=== PATIENT | female | born 1970 | race Hispanic/Latino ===

== ENCOUNTER 2019-04-21 19:09 | Emergency (ER) | payer OTHER ==
[2019-04-21 19:27] LABS: APPEARANCE,URINE Turbid (CLEAR); BILIRUBIN,URINE Negative (NEGATIVE); COLOR,URINE Yellow (YELLOW); GLUCOSE, URINE (UA) Negative (NEGATIVE); KETONES,URINE Negative (NEGATIVE); LEUKOCYTE ESTERASE ,URINE Moderate (NEGATIVE); NITRATE,URINE Negative (NEGATIVE); OCCULT BLOOD,URINE Large (NEGATIVE); PH,URINE >=9.0 (5.0-8.0); PROTEIN,URINE POS 2+ mg/dL (NEGATIVE)
[2019-04-21 19:34] LABS: RBC,URINE 26-50 /HPF (0-1)
[2019-04-21 19:35] LABS: BACTERIA,URINE Many /HPF (None Seen); MUCUS,URINE Few LPF (None Seen)
== END 2019-04-21 20:49 | disposition home or self-care (01) ==
LOC: EDH 19:09
DX: N30.01 Acute cystitis with hematuria (principal); Z90.49 Acquired absence of other specified parts of digestive tract
CPT/HCPCS: 81001

== ENCOUNTER 2021-07-21 13:46 | Emergency (ER) | payer OTHER ==
[~2021-07-21] VITALS: Ht 170.2 cm; Wt 97.5 kg
[2021-07-21] MEDS ORDERED: KETOROLAC 60 MG VIAL (30MG/ML) IM ONE (15:00)
[2021-07-21] MEDS ORDERED: CYCL-309 PO (15:56)
[2021-07-21] MEDS ORDERED: MELO7.5T12 PO (15:56)
[2021-07-21 16:02] VITALS: BP 132/80
== END 2021-07-21 16:02 | disposition home or self-care (01) ==
LOC: EDH 13:46
DX: S86.912A Strain of unspecified muscle(s) and tendon(s) at lower leg level, left leg, initial encounter (principal); Z90.49 Acquired absence of other specified parts of digestive tract; Z79.1 Long term (current) use of non-steroidal anti-inflammatories (NSAID); W18.39XA Other fall on same level, initial encounter; Y93.89 Activity, other specified; Y92.89 Other specified places as the place of occurrence of the external cause; Y99.8 Other external cause status
CPT/HCPCS: 73562; 96372; 99283; J1885

== ENCOUNTER 2021-11-20 05:30 | Observation (INO) | payer OTHER ==
[2021-11-19 15:58] LABS: BASOPHILS % (AUTO) 0.9 % (0.0-5.0); EOSINOPHILS % (AUTO) 3.2 % (0.0-8.0); HEMATOCRIT 38.3 % (36-48); LYMPHOCYTES % (AUTO) 22.4 % (21.0-51.0); MEAN CORPUSCULAR HEMOGLOBIN 25.9 pg (27.0-33.0); MEAN CORPUSCULAR HGB CONC 31.9 g/dL (32.0-36.0); MEAN CORPUSCULAR VOLUME 81.3 fL (79-99); MONOCYTES % (AUTO) 5.6 % (3.0-13.0); NEUTROPHILS % (AUTO) 67.5 % (40.0-77.0); PLATELET COUNT (AUTO) 443 K/uL (130-400); RED BLOOD CELL COUNT(AUTO) 4.71 MIL/uL (4.00-5.50); RED CELL DISTRIBUTION WIDTH 14.5 % (11.0-15.5); WHITE BLOOD COUNT (AUTO) 11.9 K/uL (4.8-10.8)
[2021-11-19 17:22] VITALS: BP 143/73
[2021-11-20] VITALS (23 sets, daily range): BP systolic 118–148; BP diastolic 66–89
[~2021-11-20] VITALS: Ht 167.6 cm; Wt 99.3 kg
[2021-11-20] MEDS ORDERED: CEFAZOLIN SODIUM 1 GM VIAL ONE (07:57)
[2021-11-20] MEDS: LACTATED RINGERS 1000ML 1,000 ML IV SCH ×2 (08:03→12:11)
[2021-11-20] MEDS ORDERED: VITAMIN D PO (09:20)
[2021-11-20] MEDS ORDERED: GARL1000 PO (09:20)
[2021-11-20] MEDS ORDERED: OMEG-148 PO (09:20)
[2021-11-20] MEDS ORDERED: MAGN500C4 PO (09:20)
[2021-11-20] MEDS ORDERED: LIDOCAINE PF 100MG/5ML (2%) SYRINGE 5ML ONE (10:51)
[2021-11-20] MEDS ORDERED: ONDANSETRON 4MG INJ ONE ×2 (10:51→14:54)
[2021-11-20] MEDS ORDERED: FENTANYL CITRATE PF 50 MCG/1 ML 5ML AMP IV ONE (10:52)
[2021-11-20] MEDS ORDERED: PROPOFOL 10 MG/ML 20ML VIAL IV ONE (10:52)
[2021-11-20] MEDS ORDERED: MIDAZOLAM HCL 1 MG/ML 2ML VIAL ONE (10:52)
[2021-11-20] MEDS ORDERED: ROCURONIUM 10MG/1ML SYR 10 MG/ML ML ONE ×2 (10:52→12:13)
[2021-11-20] MEDS ORDERED: MAGNESIUM SULFATE 1 GM/2 ML VIAL ONE (10:56)
[2021-11-20] MEDS ORDERED: KETAMINE 50MG/ML SYRINGE 50 MG/ML DISP.SYRIN IV ONE (10:56)
[2021-11-20] MEDS ORDERED: ACETAMINOPHEN 500 MG TABLET ONE (11:04)
[2021-11-20] MEDS ORDERED: CEFAZOLIN SODIUM 2 GM VIAL IV ONE (11:48)
[2021-11-20] MEDS ORDERED: EPHEDRINE SULFATE 50 MG/ML AMPULE ONE (12:12)
[2021-11-20] MEDS ORDERED: FENTANYL CITRATE PF 50 MCG/1 ML 2ML VIAL ONE ×2 (13:16→13:49)
[2021-11-20] MEDS ORDERED: GLYCOPYRROLATE 1 MG/5 ML SYRINGE ONE (13:43)
[2021-11-20] MEDS ORDERED: NEOSTIGMINE 5MG/5ML SYR IV ONE (13:43)
[2021-11-20] MEDS ORDERED: KETOROLAC 30MG VIAL (30MG/ML) ONE (14:49)
[2021-11-20] MEDS ORDERED: MEPERIDINE-PF 25 MG/ML SYG ONE (14:54)
[2021-11-20] MEDS ORDERED: ONDANSETRON 4MG INJ IVP PRN (16:00)
[2021-11-20] MEDS ORDERED: ACETAMINOPHEN WITH CODEINE 1 TAB TAB PO PRN (16:00)
[2021-11-20] MEDS ORDERED: PROMETHAZINE HCL 25 MG/ML 1ML AMPULE IM PRN (16:00)
[2021-11-20] MEDS ORDERED: BISACODYL 10 MG SUPP.RECT RC PRN (16:00)
[2021-11-20] MEDS ORDERED: IBUPROFEN 600 MG TABLET PO PRN (16:00)
[2021-11-20] MEDS: DEXTROSE 5 %-0.45 % NACL 1,000 ML IV PRN (17:15)
[2021-11-20] MEDS: PROMETHAZINE HCL 25 MG/ML 1ML AMPULE IM PRN ×2 (18:22→21:27)
[2021-11-20] MEDS: MEPERIDINE-PF 75 MG/ML SYG IM PRN ×2 (18:22→21:28)
[2021-11-20] MEDS: DOCUSATE SODIUM 100 MG CAP PO PRN (21:27)
[2021-11-20] MEDS: SIMETHICONE 80 MG TAB.CHEW PO PRN (21:27)
[2021-11-21] MEDS: DEXTROSE 5 %-0.45 % NACL 1,000 ML IV PRN (02:35)
[2021-11-21 04:11] VITALS: BP 129/79
[2021-11-21 05:21] LABS: HEMATOCRIT 33.4 % (36-48); MEAN CORPUSCULAR HEMOGLOBIN 25.8 pg (27.0-33.0); MEAN CORPUSCULAR VOLUME 80.7 fL (79-99); RED BLOOD CELL COUNT(AUTO) 4.14 MIL/uL (4.00-5.50); RED CELL DISTRIBUTION WIDTH 14.2 % (11.0-15.5); WHITE BLOOD COUNT (AUTO) 18.8 K/uL (4.8-10.8)
[2021-11-21] MEDS ORDERED: HYDROCODONE/ACETAMINOPHEN 5/325 MG TAB PO PRN (05:30)
[2021-11-21] MEDS ORDERED: ACETAMINOPHEN WITH CODEINE 1 TAB TAB PO PRN (05:30)
[2021-11-21] MEDS: IBUPROFEN 800 MG TAB PO PRN ×2 (06:47→19:31)
[2021-11-21 07:35] VITALS: BP 114/62
[2021-11-21] MEDS ORDERED: CEFAZOLIN SODIUM 1 GM VIAL IVP ONE (08:00)
[2021-11-21] MEDS: DOCUSATE SODIUM 100 MG CAP PO PRN ×2 (08:51→21:09)
[2021-11-21] MEDS: SIMETHICONE 80 MG TAB.CHEW PO PRN ×2 (08:51→21:09)
[2021-11-21] MEDS: NITROFURANTOIN MONOHYD/M-CRYST 100 MG CAPSULE PO SCH ×2 (08:51→21:09)
[2021-11-21 11:45] VITALS: BP 122/72
[2021-11-21 15:40] VITALS: BP 124/77
[2021-11-21 19:35] VITALS: BP 141/70
[2021-11-22 00:01] VITALS: BP 112/77
[2021-11-22] MEDS: IBUPROFEN 800 MG TAB PO PRN ×2 (02:24→09:12)
[2021-11-22 03:52] VITALS: BP 116/59
[2021-11-22 07:40] VITALS: BP 124/79
[2021-11-22] MEDS: NITROFURANTOIN MONOHYD/M-CRYST 100 MG CAPSULE PO SCH (09:12)
[2021-11-22] MEDS: DOCUSATE SODIUM 100 MG CAP PO PRN (09:12)
[2021-11-22] MEDS: SIMETHICONE 80 MG TAB.CHEW PO PRN (09:12)
[2021-11-22] MEDS ORDERED: FERR325T22 PO (09:27)
[2021-11-22] MEDS ORDERED: ACET-2079 PO (09:27)
[2021-11-22] MEDS ORDERED: NITR100C4 PO (09:27)
[2021-11-22 11:30] VITALS: BP 120/74
== END 2021-11-22 12:40 | disposition home or self-care (01) ==
LOC: DAH 05:30 → DAHIP 05:31 → WSH 15:15 → DAH 15:50
PROVIDERS: ADMIT Obstetrics & Gynecology; ATTEND Obstetrics & Gynecology
DX: N92.0 Excessive and frequent menstruation with regular cycle (principal); Z20.822 Contact with and (suspected) exposure to COVID-19; R10.2 Pelvic and perineal pain; N81.4 Uterovaginal prolapse, unspecified; N39.3 Stress incontinence (female) (male); N83.202 Unspecified ovarian cyst, left side; D25.9 Leiomyoma of uterus, unspecified; Z79.899 Other long term (current) drug therapy; Z98.890 Other specified postprocedural states
CPT/HCPCS: 36415 ×2; 57260; 57288; 58262; 85025; 85027; 86850; 86900; 86901; 87635; 96372; A4215; A4221; A4222; A4223; A4351; A4510; A4600; A4606; A4663; C1771; C9803; G0378 ×45; J0690 ×2; J1885; J2001; J2175 ×3; J2250; J2405 ×2; J2550 ×2; J2704; J2710; J3010 ×3; J3475; J3490 ×3; J7030; J7120 ×2

== ENCOUNTER 2023-04-12 21:55 | Emergency (ER) | payer BC, OTHER ==
[~2023-04-12] VITALS: Ht 167.6 cm; Wt 99.8 kg
[~2023-04-12 21:55] MED LIST: ACET-2079 PO; FERR325T22 PO; GARL1000 PO; MAGN500C4 PO; NITR100C4 PO; OMEG-148 PO; VITAMIN D PO
[2023-04-12 22:57] LABS: BASOPHILS # (AUTO) 0.09 K/uL (0.00-0.20); BASOPHILS % (AUTO) 0.7 % (0.0-5.0); IMMATURE GRANULOCYTE ABSOLUTE 0.06 K/uL (0-1); LYMPHOCYTES % (AUTO) 29.2 % (21.0-51.0); MEAN CORPUSCULAR HEMOGLOBIN 25.8 pg (27.0-33.0); MEAN CORPUSCULAR HGB CONC 32.3 g/dL (32.0-36.0); MEAN CORPUSCULAR VOLUME 79.9 fL (79-99); MONOCYTES # (AUTO) 0.9 K/uL (0.1-1.0); MONOCYTES % (AUTO) 6.4 % (3.0-13.0); NEUTROPHILS # (AUTO) 8.2 K/uL (1.8-7.7); NEUTROPHILS % (AUTO) 60.3 % (40.0-77.0); PLATELET COUNT (AUTO) 453 K/uL (130-400); RED BLOOD CELL COUNT(AUTO) 4.88 MIL/uL (4.00-5.50); RED CELL DISTRIBUTION WIDTH 15.6 % (11.0-15.5); WHITE BLOOD COUNT (AUTO) 13.6 K/uL (4.8-10.8)
[2023-04-12] MEDS ORDERED: LACTATED RINGERS 1000ML 1,000 ML IV ONE (23:00)
[2023-04-12] MEDS ORDERED: MORPHINE 4 MG SYG IVP ONE (23:00)
[2023-04-12 23:08] LABS: CARBON DIOXIDE 29 mmol/L (21-32); CHLORIDE 103 mmol/L (101-111); CREATININE 0.8 mg/dL (0.5-1.5); GLOMERULAR FILTR. RATE CALC 90 mL/min (>90); GLUCOSE,RANDOM 110 mg/dL (70-105); POTASSIUM 3.4 mmol/L (3.5-5.1); SODIUM SERUM 142 mmol/L (136-145); UREA NITROGEN, BLOOD 11 mg/dL (7-18)
[2023-04-12 23:11] LABS: INR < 0.93 (0.85-1.15); PROTHROMBIN TIME 10.7 SEC (9.6-11.6)
[2023-04-12 23:12] LABS: PARTIAL THROMBOPLASTIN TIME 25.1 SEC (26.3-35.5)
[2023-04-12 23:19] LABS: ALANINE AMINOTRANSFERASE 89 U/L (12-78); ALBUMIN 3.3 g/dL (3.5-5.0); ALCOHOL, BLOOD < 3 mg/dL (0-10); ASPARTATE AMINOTRANSFERASE 55 U/L (10-37); BILIRUBIN,TOTAL 0.5 mg/dL (0.2-1.0); CREATINE KINASE, TOTAL 78 U/L (21-232); MYOGLOBIN 47 ng/mL (10-92); TOTAL PROTEIN, SERUM 7.7 g/dL (6.0-8.3)
[2023-04-12] MEDS ORDERED: IOHEXOL 350 MG/ML 100ML INFUS..BTL IV ONE (23:33)
[2023-04-13 01:17] VITALS: BP 135/78; PULSE 80; RESP 14; O2SAT 97
[2023-04-13] MEDS ORDERED: IBUP-1493 PO (01:42)
== END 2023-04-13 01:49 | disposition home or self-care (01) ==
LOC: EDH 21:55
DX: R07.89 Other chest pain (principal); R10.9 Unspecified abdominal pain; Z90.49 Acquired absence of other specified parts of digestive tract
CPT/HCPCS: 99285; 70450; 96374; 71045; 96361; 82550; 83874; 84484; 80053; 85025; 85610; 85730; 36415; 73030; 72125; 71270; 74178; 93005; J7120; J2270; Q9967